=== PATIENT | female | born 1940 | race Caucasian/White ===

== ENCOUNTER 2020-05-26 09:32 | Emergency (ER) | payer MEDICARE ==
[~2020-05-26] VITALS: Ht 157.4 cm; Wt 70.4 kg
[2020-05-26 09:56] LABS: BASOPHILS % (AUTO) 1 % (0-10); EOSINOPHILS # (AUTO) 0.2 10^3/uL (0.0-0.3); EOSINOPHILS % (AUTO) 3 % (0-10); HEMATOCRIT 38 % (35-52); HEMOGLOBIN 12.6 g/dL (11.5-16.0); LYMPHOCYTES # (AUTO) 1.4 10^3/uL (1.0-4.0); LYMPHOCYTES % (AUTO) 24 % (12-44); MEAN CORPUSCULAR HEMOGLOBIN 33 pg (25-34); MEAN CORPUSCULAR HGB CONC 33 g/dL (32-36); MEAN CORPUSCULAR VOLUME 99 fL (80-99); MEAN PLATELET VOLUME 10.2 fL (9.0-12.2); MONOCYTES # (AUTO) 0.4 10^3/uL (0.0-1.0); MONOCYTES % (AUTO) 7 % (0-12); NEUTROPHILS # (AUTO) 3.8 10^3/uL (1.8-7.8); NEUTROPHILS % (AUTO) 65 % (42-75); PLATELET COUNT 318 10^3/uL (130-400); WHITE BLOOD COUNT 5.9 10^3/uL (4.3-11.0)
--- NOTE | 2020-05-26 09:56 | NUR ---
TRIED TO CALL SON AND GIVE UP DATE PHONE WENT TO [facility]ICE [facility]IL
[2020-05-26] MEDS ORDERED: ASPIRIN 81 MG CHEW (CHILDREN'S ASA) PO ONE (10:00)
--- NOTE | 2020-05-26 10:00 | ED Chest Pain ---
General Chief Complaint: Chest Pain Stated Complaint: CHEST PAIN Nursing Triage Note: AMB TO ROOM REPORTS WAS RIDING IN CAR ONSET OF CHEST PAIN. REPORTS PAIN DID NOT LAST LONG. DENIES PAIN ON ADMIT. Nursing Sepsis Screen: No Definite Risk Source: patient Exam Limitations: no limitations History of Present Illness Date Seen by Provider: May 26, 2020 Time Seen by Provider: 09:42 Initial Comments This pleasant 79-year-old woman presents to the emergency room with complaints of sudden onset of chest pain around 09: 00 this morning while driving in the car. The pain was in the lower sternal region and they get by description. It lasted 5 to 10 minutes and then resolved spontaneously. She denies any other symptoms such as lightheadedness, nausea, diaphoresis, etc. She has history of coronary artery disease status post CABG. Dr. Land had been her card lacer and she has not established with anyone else since his transfer of practice. Her primary care provider is Dr. Ulloa. She denies any symptoms at this time. Allergies and Home Medications Allergies Coded Allergies: Penicillins (Verified Allergy, Unknown, 05/26/20) Past Haqekno-Xubghn-Knxdil Hx Patient Social History Alcohol Use: Occasionally Uses Alcohol Beverage of Choice: Wine Recreational Drug Use: No Smoking Status: Never a Smoker Recent Foreign Travel: No Contact w/Someone Who Travel: No Recent Infectious Disease Expo: No Past Medical History Surgeries: Yes Breast, Hysterectomy Respiratory: No Cardiac: Yes Hypertension Neurological: No Genitourinary: Yes Kidney Infection Gastrointestinal: No Musculoskeletal: No Endocrine: No HEENT: No Cancer: Yes Breast, Ovarian Psychosocial: Yes Depression Physical Exam Vital Signs Vital Signs - First Documented 05/26/20 09:35 Temp 36.8 Pulse 67 Resp 18 B/P (MAP) 178/88 (118) Pulse Ox 97 O2 Delivery Room Air Capillary Refill : Less Than 3 Seconds Height, Weight, BMI Height: '" Weight: lbs. oz. kg; 28.00 BMI Method: Progress/Results/Core Measures Results/Orders Lab Results Laboratory Tests Test 05/26/20 09:48 05/26/20 13:05 Range/Units White Blood Count 5.9 4.3-11.0 10^3/uL Red Blood Count 3.84 3.80-5.11 10^6/uL Hemoglobin 12.6 11.5-16.0 g/dL Hematocrit 38 35-52 % Mean Corpuscular Volume 99 80-99 fL Mean Corpuscular Hemoglobin 33 25-34 pg Mean Corpuscular Hemoglobin Concent 33 32-36 g/dL Red Cell Distribution Width 13.7 10.0-14.5 % Platelet Count 318 130-400 10^3/uL Mean Platelet Volume 10.2 9.0-12.2 fL Immature Granulocyte % (Auto) 0 % Neutrophils (%) (Auto) 65 42-75 % Lymphocytes (%) (Auto) 24 12-44 % Monocytes (%) (Auto) 7 0-12 % Eosinophils (%) (Auto) 3 0-10 % Basophils (%) (Auto) 1 0-10 % Neutrophils # (Auto) 3.8 1.8-7.8 10^3/uL Lymphocytes # (Auto) 1.4 1.0-4.0 10^3/uL Monocytes # (Auto) 0.4 0.0-1.0 10^3/uL Eosinophils # (Auto) 0.2 0.0-0.3 10^3/uL Basophils # (Auto) 0.0 0.0-0.1 10^3/uL Immature Granulocyte # (Auto) 0.0 0.0-0.1 10^3/uL Prothrombin Time 13.7 12.2-14.7 SEC INR Comment 1.0 0.8-1.4 Activated Partial Thromboplast Time 32 24-35 SEC Sodium Level 139 135-145 MMOL/L Potassium Level 4.1 3.6-5.0 MMOL/L Chloride Level 102 98-107 MMOL/L Carbon Dioxide Level 32 21-32 MMOL/L Anion Gap 5 5-14 MMOL/L Blood Urea Nitrogen 24 H 7-18 MG/DL Creatinine 0.82 0.60-1.30 MG/DL Estimat Glomerular Filtration Rate > 60 BUN/Creatinine Ratio 29 Glucose Level 103 70-105 MG/DL Calcium Level 9.3 8.5-10.1 MG/DL Corrected Calcium 8.9 8.5-10.1 MG/DL Magnesium Level 2.0 1.6-2.4 MG/DL Total Bilirubin 0.6 0.1-1.0 MG/DL Aspartate Amino Transf (AST/SGOT) 22 5-34 U/L Alanine Aminotransferase (ALT/SGPT) 15 0-55 U/L Alkaline Phosphatase 74 40-136 U/L Myoglobin 48.3 10.0-92.0 NG/ML Troponin I < 0.028 < 0.028 <0.028 NG/ML Total Protein 7.7 6.4-8.2 GM/DL Albumin 4.5 3.2-4.5 GM/DL My Orders Orders - AC NIEVES MD Cbc With Automated Diff (05/26/20 09:46) Magnesium (05/26/20 09:46) Chest 1 View, Ap/Pa Only (05/26/20 09:46) Ekg Tracing (05/26/20 09:46) Comprehensive Metabolic Panel (05/26/20 09:46) Myoglobin Serum (05/26/20 09:46) Protime With Inr (05/26/20 09:46) Partial Thromboplastin Time (05/26/20 09:46) O2 (05/26/20 09:46) Monitor-Rhythm Ecg Trace Only (05/26/20 09:46) Lipid Panel (05/27/20 06:00) Ed Iv/Invasive Line Start (05/26/20 09:46) Troponin I (05/26/20 09:46) Aspirin Chewable Tablet (Baby Aspirin Ch (05/26/20 10:00) Troponin I (05/26/20 13:00) Medications Given in ED Current Medications Medications Dose Ordered Sig/Ranjeet Route Start Time Stop Time Status Last Admin Dose Admin Aspirin 324 mg ONCE ONCE PO 05/26/20 10:00 05/26/20 10:01 DC 05/26/20 09:58 324 MG Vital Signs/I&O 05/26/20 05/26/20 05/26/20 05/26/20 09:35 10:21 11:45 13:18 Temp 36.8 Pulse 67 64 55 54 Resp 18 18 18 18 B/P (MAP) 178/88 (118) 147/63 (91) 146/69 (94) 150/61 (90) Pulse Ox 97 97 97 95 O2 Delivery Room Air Room Air Room Air Blood Pressure Mean: 118 Progress Progress Note : Time: 09:57 Progress Note Patient was seen and examined and is asymptomatic at this time. EKG showed no ischemia. Chest pain work-up is pending. Initial ECG Impression Date: May 26, 2020 Initial ECG Impression Time: 09:34 Initial ECG Rate: 68 Initial ECG Rhythm: Normal Sinus Initial ECG Intervals: Normal Initial ECG Impression: Normal Comment Normal sinus rhythm with no ST depression or elevation. No abnormal intervals or axis deviation. Diagnostic Imaging Diagonstic Imaging: Xray Plain Films/CT/US/NM/MRI: chest Comments Chest x-ray viewed by me and report reviewed. See report below: NAME: LITO MENDEZ [facility] REC#: [id number] PT STATUS: REG ER : 1940 PHYSICIAN: AC NIEVES MD ADMIT DATE: 05/26/20/ER Signed Date of Exam:05/26/20 CHEST 1 VIEW, AP/PA ONLY INDICATION: Chest pain. EXAMINATION: Portable chest at 10:17 a.m. FINDINGS: There are postoperative changes from CABG surgery. Heart size and pulmonary vascularity are normal. Lungs are clear. There are no effusions or pneumothoraces. IMPRESSION: No acute abnormalities in the chest. Dictated by: Dictated on workstation # [id number] Dict: 05/26/20 1014 Trans: 05/26/20 1023 [facility] [id number] Interpreted by: AJ GOMEZ MD Electronically signed by: AJ GOMEZ MD 05/26/20 1023 Departure Impression Primary Impression: Chest pain Qualified Codes: R07.9 - Chest pain, unspecified Disposition: 01 HOME, SELF-CARE Condition: Improved Departure-Patient Inst. Decision time for Depature: 13:52 Referrals: NO,LOCAL PHYSICIAN (PCP/Family) Primary Care Physician Patient Instructions: Chest Pain Add. Discharge Instructions: Return to care if you have worsening symptoms. Please follow-up with your primary care provider and a card lacer soon as possible. You may seek referral to a card lacer from your primary care provider. Continue all other medications as previously prescribed. All discharge instructions reviewed with patient and/or family. Voiced understanding. Scripts Nitroglycerin (Nitroglycerin) 0.4 Mg Tab.subl 0.4 MG SL UD PRN for CHEST PAIN, #10 TAB Prov: AC NIEVES MD 05/26/20 AC NIEVES MD May 26, 2020 10:00
--- NOTE | 2020-05-26 10:03 | NUR ---
SON CALLED BACK AND UPDATE GIVEN.
[2020-05-26 10:09] LABS: ALBUMIN 4.5 GM/DL (3.2-4.5); CHLORIDE 102 MMOL/L (98-107); POTASSIUM 4.1 MMOL/L (3.6-5.0); SODIUM 139 MMOL/L (135-145)
[2020-05-26 10:10] LABS: CALCIUM 9.3 MG/DL (8.5-10.1)
[2020-05-26 10:11] LABS: GLUCOSE 103 MG/DL (70-105); TOTAL PROTEIN 7.7 GM/DL (6.4-8.2)
[2020-05-26 10:13] LABS: BILIRUBIN,TOTAL 0.6 MG/DL (0.1-1.0); CARBON DIOXIDE 32 MMOL/L (21-32)
[2020-05-26 10:14] LABS: PROTHROMBIN TIME PATIENT 13.7 SEC (12.2-14.7)
[2020-05-26 10:15] LABS: ALKALINE PHOSPHATASE 74 U/L (40-136); CREATININE SERUM 0.82 MG/DL (0.60-1.30); GFR ESTIMATED > 60
[2020-05-26 10:16] LABS: BUN/CREATININE RATIO 29
--- NOTE | 2020-05-26 10:16 | Diagnostic Imaging Report ---
INDICATION: Chest pain. EXAMINATION: Portable chest at 10:17 a.m. FINDINGS: There are postoperative changes from CABG surgery. Heart size and pulmonary vascularity are normal. Lungs are clear. There are no effusions or pneumothoraces. IMPRESSION: No acute abnormalities in the chest. Dictated by: Dictated on workstation # [id number]
[2020-05-26 10:18] LABS: ALANINE AMINOTRANSFERASE 15 U/L (0-55)
--- NOTE | 2020-05-26 10:46 | NUR ---
ATTEMPT TO CALL AND UPDATE SON NO ANSWSER
--- NOTE | 2020-05-26 10:48 | NUR ---
PATIENT INFORMED THAT WILL REDRAW TROPONIN AT 1PM
--- NOTE | 2020-05-26 11:37 | NUR ---
Biju ch in [facility] - 05/26/20 at [address]
--- NOTE | 2020-05-26 12:05 | NUR ---
TO ROOM NO NEW C/O
--- NOTE | 2020-05-26 13:48 | NUR ---
CALLED AND UPDATED SON AND THAT SHE IS READY FOR DISCHARGE.
[2020-05-26] MEDS ORDERED: NITR0.4T39 SL (13:54)
[2020-05-26 14:06] VITALS: BP 144/60
== END 2020-05-26 14:07 | disposition home or self-care (01) ==
LOC: EDUNIT# 09:32 → ER 09:38
DX: R07.9 Chest pain, unspecified (principal); I10 Essential (primary) hypertension; I25.10 Atherosclerotic heart disease of native coronary artery without angina pectoris; Z88.0 Allergy status to penicillin; Z85.3 Personal history of malignant neoplasm of breast; Z85.43 Personal history of malignant neoplasm of ovary; Z95.1 Presence of aortocoronary bypass graft
CPT/HCPCS: 36415; 71045; 80053; 83735; 83874; 84484; 85025; 85610; 85730; 93005; 93041